=== PATIENT | female | born 1965 | race Two or more races ===

== ENCOUNTER 2024-05-21 06:57 | Emergency (ER) | payer MEDICAID, SELFPAY ==
[2024-05-21 06:58] VITALS: BMI 23.8
[2024-05-21 07:14] VITALS: BP 126/75; PULSE 100; RESP 16; TEMP 37.3; O2SAT 98
[2024-05-21] MEDS: SUMAtriptan INJ 6 MG/0.5 ML VIAL SC (07:46)
[2024-05-21] MEDS: METOCLOPRAMIDE LIQD 10 MG/10 ML UDC PO (07:46)
--- NOTE | 2024-05-21 08:59 | EDNOTE_ITS ---
ED Headache RME/HPI General Chief Complaint: Headache Stated Complaint: HEADACHE, CHILLS, BODYACHES X 3WKS Time Seen by Provider: 05/21/24 07:07 Source: patient Arrival date/time: 05/21/24 06:57 58-year-old female with no known medical history presents to the emergency room with a chief complaint of a headache, body aches, chills x 3 weeks. Mode of arrival: ambulatory Limitations: no limitations Related Data Previous Rx's ?Medication ?Instructions ?Recorded famotidine 40 mg tablet (Pepcid) 40 mg PO QDAY #20 tab s 04/17/20 acetaminophen-caffeine 500 mg-65 1 tab PO Q8H PRN pain #30 tabs 05/21/24 mg tablet (Excedrin Tension Headache) Allergies Allergy/AdvReac Type Severity Reaction Status Date / Time ibuprofen Allergy Intermediate RASH,MOUTH Verified 04/17/20 07:31 SWELLS naproxen (From Naprosyn) Allergy Mild Rash Verified 04/17/20 07:31 Review of Systems Review of Systems Systems Reviewed: All systems reviewed, normal except as documented Constitutional Constitutional: Reports system reviewed and no additional complaints, except as documented, Reports body ache(s), Denies fatigue, Denies fever(s), Reports headache(s) and Denies weakness Eyes Eyes: Reports system reviewed and no additional complaints, except as documented, Denies blurry vision, Denies change in vision and Denies loss of vision ENT Ears, Nose, Mouth, and Throat: Reports system reviewed and no additional complaints, except as documented, Denies abnormal hearing, Denies otalgia, Reports headache(s), Denies nasal congestion, Denies throat swelling and Denies vertigo Cardiovascular Cardiovascular: Reports system reviewed and no additional complaints, except as documented, Denies chest pain, Denies dyspnea, Denies dyspnea on exertion and Denies syncope Respiratory Respiratory: Reports system reviewed and no additional complaints, except as documented, Denies chest congestion, Denies cough, Denies dyspnea, Denies dyspnea on exertion and Denies wheezing Gastrointestinal Gastrointestinal: Reports system reviewed and no additional complaints, except as documented, Denies abdominal pain, Denies cramping, Denies nausea and Denies vomiting Genitourinary Genitourinary: Reports system reviewed and no additional complaints, except as documented Musculoskeletal Musculoskeletal: Reports system reviewed and no additional complaints, except as documented, Denies abnormal gait, Denies back pain, Denies numbness and Denies tingling Integumentary/Breasts Skin/Breast: Reports system reviewed and no additional complaints, except as documented and Denies wounds Neurologic Neurologic: Reports system reviewed and no additional complaints, except as documented, Denies abnormal gait, Denies abnormal hearing, Denies abnormal movements, Denies confusion, Reports headache(s), Denies lack of coordination, Denies loss of vision, Denies numbness, Denies seizure-like activity, Denies syncope, Denies tingling, Denies tremor(s), Denies vertigo and Denies weakness Psychiatric Psychiatric: Reports system reviewed and no additional complaints, except as documented, Denies anxiety, Denies confusion, Denies depression, Denies paranoia, Denies suicidal ideation and Denies tactile hallucinations Endocrine Endocrine: Reports system reviewed and no additional complaints, except as documented and Denies fatigue Hematologic/Lymphatic Hematologic/Lymphatic: Reports system reviewed and no additional complaints, except as documented and Denies lymphadenopathy Allergic/Immunologic Allergic/Immunologic: Reports system reviewed and no additional complaints, except as documented, Denies throat swelling, Denies urticaria and Denies wheezing ED Exam General Limitations: Present no limitations General appearance: Present alert and in no apparent distress Head Head exam: Present atraumatic, normocephalic and normal inspection Eye Eye exam: Present normal appearance, PERRL and EOMI ENT ENT exam: Present normal exam, normal oropharynx and mucous membranes moist Neck Neck exam: Present normal inspection, full ROM and trachea midline Chest Chest inspection: Present normal inspection and symmetric chest wall rise Respiratory Respiratory exam: Present normal lung sounds bilaterally Cardiovascular Cardiovascular exam: Present regular rate, normal rhythm and normal heart sounds Abdominal Exam Abdominal exam: Present soft and normal bowel sounds Extremities Exam Extremities exam: Present normal inspection and full ROM Back Exam Back exam: Present normal inspection and full ROM Neurological Exam Neurological exam: Present alert, oriented X3, CN II-XII intact, normal gait and reflexes normal Expanded Neurological Exam Patient oriented to: Present person, place and time Speech: Present fluid speech Cranial nerves: Normal: EOM function (II, III, IV, ), facial sensation (V), facial palsy (VII) and gag reflex (IX) Cerebellar function: Normal: finger to nose Cerebellar function: Present normal gait Motor strength - LUE: 5/5 Motor strength - RUE: 5/5 Motor strength - LLE: 5/5 Motor strength - RLE: 5/5 Coma scale eye opening: spontaneous Coma scale motor response: obeys commands Coma scale verbal response: oriented Coma scale total: 15 Psychiatric Psychiatric exam: Present normal affect and normal mood Skin Skin exam: Present warm, dry, intact and normal color Course Quality Measures none Orders Category Date Time Status Bedside COVID-19 Antigen Test NOW Care 05/21/24 07:28 Active Bedside Influenza A&B Antigen Test NOW Care 05/21/24 07:28 Completed Metoclopramide [Reglan] Med 05/21/24 07:26 Discontinued 10 mg PO X1 ONE SUMAtriptan INJ [Imitrex Inj] Med 05/21/24 07:26 Discontinued 6 mg SC X1 ONE Vital Signs Vital signs: Vital Signs Temperature 99.1 F 05/21/24 07:14 Pulse Rate 100 05/21/24 07:14 Respiratory Rate 16 05/21/24 07:14 Blood Pressure 126/75 05/21/24 07:14 Pulse Oximetry (%) 98 05/21/24 07:14 Oxygen Delivery Method Room Air 05/21/24 07:14 Headache MDM Narrative MDM Narrative:: 58-year-old female with no known medical history presents to the emergency room with a chief complaint of a headache, body aches, chills x 3 weeks. Patient is hemodynamically stable and in no apparent distress. She is not tachypneic, tachycardic and is afebrile Physical examination shows a normal neurological exam. Her pupils are PERRLA EOMs are intact she has a normal steady gait all cranial reflexes are normal patient is a GCS of 15 she is alert and oriented x 3. Patient states the onset of this headache is 3 weeks. It is a unilateral headache to her left side of her head. Patient's tympanic membrane's are clear normal and nonbulging. She has a supple neck, and states she has some photophobia. There is no trauma. Medication was given to the patient with significant improvement to her symptoms. I discussed with the patient that this is most likely a migraine and if her signs and symptoms continue to please return to the emergency room immediately. Patient was discharged and educated to follow-up with primary care provider in the next 24 to 48 hours and return to the emergency room for any evidence of worsening signs or symptoms Patient data External records reviewed:: [facility] previous records Clinical information provided by:: patient Social determinants that could affect healthcare access:: none Patient has the following chronic illnesses:: No chronic illness How is presenting disease/condition affected by chronic disease/condition?: no chronic disease Evaluation data The following diagnostics were reviewed and interpreted by me:: lab results and radiology exam(s) Lab and/or radiology exams considered but not ordered:: Labs and radiology exams considered and ordered Interpretation Summary: N/A Medications / Prescriptions Medications or Prescriptions considered but not ordered:: Medication given Medication administrations:: Medication Administration History Discontinued Medications Metoclopramide HCl (Metoclopramide Liqd 10 Mg/10 Ml Udc) 10 mg PO X1 ONE Stop: 05/21/24 07:27 Last Admin: 05/21/24 07:46 Dose: 10 mg Documented By: BD Sumatriptan Succinate (Sumatriptan Inj 6 Mg/0.5 Ml Vial) 6 mg SC X1 ONE Stop: 05/21/24 07:27 Last Admin: 05/21/24 07:46 Dose: 6 mg Documented By: BD Medication given Consultations Consultation(s) initiated? (list below): No Diagnosis Differential diagnosis headache: migraine, tension headache, headache and sinusitis Most likely diagnosis given after review of the tests above:: Migraine Admission Indicated Admission indicated?: not indicated Admission Request Was there a request for admission?: No Disposition Plan Disposition Plan: Discharge Discharge Attestation Discharge Attestation: The patient and all family members were given an opportunity to ask questions and understood the discharge instructions. Discharge instructions specifically effects, indications for sooner follow up or return to the emergency department, and the expected course of current diagnosis. Patient condition: Stable Discharge Plan Plan Patient Disposition: HOME (Self Care) Disposition Comment: Stable Prescriptions/Referrals Prescriptions/Med Rec: New Excedrin Tension Headache 500-65 mg tablet 1 tab PO Q8H PRN (Reason: pain) Qty: 30 0RF No Action famotidine [Pepcid] 40 mg tablet 40 mg PO QDAY Qty: 20 0RF Referrals: Ganesh Aparicio MD [Primary Care Provider] - In 1 week Problem List Clinical Impression: Migraine Patient/Caregiver Discharge Instructions Education Materials: ED Headache, Migraine, Classic Additional Instructions: Por favor, consulte con kruse m?dico de cabecera en las pr?ximas 24 a 48 horas. Se le administraron medicamentos para aliviar toan signos y s?ntomas. Si los s?ntomas persisten, acuda a urgencias de inmediato, seg?n lo acordado. Print Language: Gren[place] Stand Alone Forms: Yas Award Info., Patient Portal Info Letter PA/PROCESS IMPROVEMENT MANAGER Supervising Physician PA/PROCESS IMPROVEMENT MANAGER Supervising Physician: Dr Corbin
== END 2024-05-21 09:35 | disposition home or self-care (01) ==
PROVIDERS: Emergency Provider Emergency Medicine; PCP Family Medicine
DX: G43.909 Migraine, unspecified, not intractable, without status migrainosus (principal)
CPT/HCPCS: 87400; 87811; 96372; 99283; J3030; A9270